=== PATIENT | male | born 1960 | race Caucasian/White ===

== ENCOUNTER 2023-03-24 09:50 | Outpatient (CLI) | payer BC | END 2023-03-24 09:51 | disposition home or self-care (01) | LOC: SCSRAD 09:50 | PROVIDERS: ATTEND Family Medicine | DX: J93.83 Other pneumothorax (principal); S22.31XA Fracture of one rib, right side, initial encounter for closed fracture; J92.9 Pleural plaque without asbestos | CPT/HCPCS: 71046 ==

== ENCOUNTER 2024-11-05 10:50 | Outpatient (CLI) | payer MEDICARE | END 2024-11-05 10:51 | disposition home or self-care (01) | LOC: LABBT 10:50 | PROVIDERS: ATTEND Urology | DX: Z01.818 Encounter for other preprocedural examination (principal); N40.1 Benign prostatic hyperplasia with lower urinary tract symptoms; R35.0 Frequency of micturition; F19.11 Other psychoactive substance abuse, in remission; R97.20 Elevated prostate specific antigen [PSA]; R37 Sexual dysfunction, unspecified; N52.9 Male erectile dysfunction, unspecified; R81 Glycosuria; N35.811 Other urethral stricture, male, meatal; K59.01 Slow transit constipation; Z21 Asymptomatic human immunodeficiency virus [HIV] infection status; Z98.890 Other specified postprocedural states | CPT/HCPCS: 80048; 81001; 85025; 85610; 85730; 86850; 86900; 86901; 87086; 93005; 93010 ==

== ENCOUNTER 2024-11-10 06:38 | Day surgery (SDC) | payer MEDICARE ==
[2024-11-05 11:10] VITALS: BMI 26.0
[2024-11-05 12:30] LABS: #Basophils 0.05 10x3/uL (0.0-0.2); #Eosinophils 0.07 10x3/uL (0.0-0.7); #Monocytes 0.64 10x3/uL (0.11-0.59); #Neutrophils 3.97 10x3/uL (1.40-6.50); %Basophils 0.7 % (0.0-1.0); %Eosinophils 1.0 % (0.0-10.0); %Lymphocytes 34.5 % (21.0-51.0); %Monocytes 8.8 % (0.0-10.0); %Neutrophils 54.6 % (42.0-75.0); Hematocrit 45.7 % (42.0-52.0); Hemoglobin 15.2 g/dL (14.0-18.0); Mean Corpuscular Hemoglobin 29.1 pg (27.0-31.0); Mean Corpuscular Volume 87.5 fL (78.0-98.0); Platelet Count 174 10x3/uL (130-400); Red Blood Cell (RBC) Count 5.22 mill/uL (4.70-6.10); White Blood Cell (WBC) Count 7.27 10x3/uL (4.8-10.8)
[2024-11-05 12:40] LABS: Bacteria/HPF None Seen HPF (None Seen); Glucose, Urine (Dipstick) Normal (Negative); Leukocyte Negative Leu/uL (Negative); Protein, Urine (Dipstick) Negative (Neg-Trace); RBC/HPF 0-3 HPF (0-3); Specific Gravity, Urine 1.014 (1.002-1.036); WBC/HPF 0-3 HPF (0-3)
[2024-11-05 12:45] LABS: Anion Gap 13 mmol/L (10-20); BUN (Urea Nitrogen) 17 mg/dL (8.4-25.7); Calc. Creatinine Clearance 0 mL/min (70-130); Calcium 9.4 mg/dL (7.8-10.44); Carbon Dioxide 27 mmol/L (23-31); Chloride 105 mmol/L (98-107); Glucose 94 mg/dL (80-115); Potassium 4.3 mmol/L (3.5-5.1); Sodium 141 mmol/L (136-145)
[2024-11-05 12:46] LABS: INR-International Normal Ratio 1.0; Prothrombin Time 13.7 sec (12.0-14.7)
[2024-11-05 12:47] LABS: PTT 35.3 sec (22.9-36.1)
[2024-11-10] MEDS ORDERED: PROPOFOL 20 ML ONE (08:43)
[2024-11-10] MEDS ORDERED: Rocuronium Bromide 10 MG/ML (10ML VIAL) ONE (08:43)
[2024-11-10] MEDS ORDERED: LevoFLOXacin D5W 500 mg (100 mL) BAG ONE (09:24)
[2024-11-10] MEDS ORDERED: fentaNYL PF 100 MCG/2 ML SYRINGE ONE ×2 (09:32→10:25)
[2024-11-10] MEDS ORDERED: Ondansetron PF 4 MG/2 ML Vial ONE (09:46)
[2024-11-10] MEDS ORDERED: Glycopyrrolate 0.2 MG/ML 5 ML SYRINGE ONE ×2 (10:10→11:07)
[2024-11-10] MEDS ORDERED: PHENYLEPHRINE-NS 100 MCG/ML 10 ML SYRINGE ONE (10:50)
[2024-11-10] MEDS ORDERED: NEOSTIGMINE 3 MG/3 ML SYRINGE ONE (11:07)
[2024-11-10] MEDS ORDERED: Hyoscyamine SL 0.125 MG TAB ONE (11:57)
== END 2024-11-10 14:15 | disposition home or self-care (01) ==
LOC: SDC 06:38
PROVIDERS: ATTEND Urology
PROC: 0VT08ZZ Resection of Prostate, Via Natural or Artificial Opening Endoscopic (ICD-10-PCS; principal; 2024-11-10)
DX: N40.1 Benign prostatic hyperplasia with lower urinary tract symptoms (principal); R35.0 Frequency of micturition; R81 Glycosuria; R97.20 Elevated prostate specific antigen [PSA]; N35.911 Unspecified urethral stricture, male, meatal; N52.9 Male erectile dysfunction, unspecified; N35.811 Other urethral stricture, male, meatal; F41.9 Anxiety disorder, unspecified; F32.A Depression, unspecified; K59.01 Slow transit constipation; Z21 Asymptomatic human immunodeficiency virus [HIV] infection status; Z98.890 Other specified postprocedural states; Z88.8 Allergy status to other drugs, medicaments and biological substances; Z79.899 Other long term (current) drug therapy
CPT/HCPCS: 52601; 80048; 81001; 85025; 85610; 85730; 86850; 86900; 86901; 87086; A4333; J1100; J1956; J2704; 88305